=== PATIENT | male | born 1985 | race Caucasian/White ===

== ENCOUNTER 2019-09-23 05:59 | Emergency (ER) | payer BC ==
[~2019-09-23] VITALS: Ht 175.3 cm; Wt 79.5 kg
[2019-09-23 06:04] VITALS: TEMP 97.9
[2019-09-23 07:02] LABS: BASO % 0.6 % (0.0-2.0); EOS # 0.1 (0.0-0.7); EOS % 1.2 % (0-4.0); GRAN # 5.7 (1.4-6.5); HEMOGLOBIN 14.3 g/dl (13.5-18.0); LYMPH # 1.1 (1.2-3.4); LYMPH % 14.6 % (20.0-51.0); MEAN CELL VOLUME 85 fl (80.0-100.0); MEAN CORPUSCULAR HEMOGLOBIN 28 pg (27.0-31.0); MEAN CORPUSCULAR HGB CONC 33 g/dl (33.0-37.0); MEAN PLATELET VOLUME 10.3 fl (7.4-10.4); MONO # 0.4 (0.1-0.6); MONO % 5.2 % (1.7-9.3); PLATELET COUNT 154 K/mm3 (130-400); RED BLOOD COUNT 5.07 M/mm3 (4.20-5.60); REDCELL DISTRIBUTION WIDTH-CV 13.5 % (11.5-14.5)
[2019-09-23 07:04] LABS: ALANINE AMINOTRANSFERASE 15 U/L (4-49); ALBUMIN 4.1 gm/dL (3.5-5.0); ALKALINE PHOSPHATASE 58 U/L (50-136); ANION GAP 4 mmol/L (7-16); AST,SGOT 18 U/L (15-37); BILIRUBIN,TOTAL 0.9 mg/dL (0.0-1.0); BLOOD UREA NITROGEN 18 mg/dL (9-20); CALCIUM 8.2 mg/dL (8.4-10.2); CARBON DIOXIDE 25 mmol/L (22-30); CHLORIDE 108 mmol/L (98-107); CREATININE, serum 1.07 (0.66-1.25); GLUCOSE 111 mg/dL (74-106); POTASSIUM 4.5 mmol/L (3.4-5.0); SODIUM 137 mmol/L (137-145); TOTAL PROTEIN 6.9 gm/dL (6.4-8.2)
[2019-09-23 07:16] LABS: TROPONIN-I < 0.012 ng/mL (0.000-0.035)
[2019-09-23 07:20] LABS: PROLACTIN 28.4 ng/mL (3.7-17.9)
[2019-09-23 07:58] VITALS: BP 114/78; PULSE 73
== END 2019-09-23 07:58 | disposition home or self-care (01) ==
LOC: COL.ER 05:59 → EDBD 06:00 → COL.ER 07:58
PROVIDERS: Emergency Medicine
DX: R55 Syncope and collapse (principal)

== ENCOUNTER → 2019-10-08 | Outpatient (CLI) | payer BC | LOC: COL.VAS 11:58 | DX: R55 Syncope and collapse (principal) ==

== ENCOUNTER 2019-11-15 09:09 | Outpatient (CLI) | payer BC ==
[~2019-11-15] VITALS: Ht 175.4 cm; Wt 79.0 kg
[2019-11-15 09:44] VITALS: BP 131/90; PULSE 73; TEMP 98
[2019-11-15 11:53] VITALS: BP 001/83; PULSE 81
--- NOTE | 2019-11-15 11:54 | NUR ---
Back from [employer] by [facility]. [place].
--- NOTE | 2019-11-15 12:21 | NUR ---
Dr. Joyner in to see pt, ok to discharge. INT discontinued intact. Discharge instructions given. Ambulated to private car
== END 2019-11-15 12:23 | disposition home or self-care (01) ==
LOC: COL.CAR 09:09
DX: R55 Syncope and collapse (principal)

== ENCOUNTER → 2019-12-07 | Outpatient (CLI) | payer BC | LOC: COL.CARD 09:28 | DX: R55 Syncope and collapse (principal) ==

== ENCOUNTER 2021-03-23 15:00 | Outpatient (RCR) | payer BC | END 2021-03-26 | disposition home or self-care (01) | LOC: WSPT | DX: M79.672 Pain in left foot (principal); M25.562 Pain in left knee; M25.572 Pain in left ankle and joints of left foot ==

== ENCOUNTER 2021-04-03 15:00 | Outpatient (RCR) | payer BC | END 2021-04-23 | disposition home or self-care (01) | LOC: WSPT | DX: M79.672 Pain in left foot (principal); M25.562 Pain in left knee; M25.572 Pain in left ankle and joints of left foot ==

== ENCOUNTER → 2023-04-02 | Outpatient (CLI) | payer BC ==
[~2023-04-02] MED LIST: Albuterol 0.083% Neb Soln 2.5 MG/3 ML UD IH ONE
== END ==
LOC: COL.CARD 07:48
DX: R05.9 Cough, unspecified (principal)

== ENCOUNTER → 2023-04-03 | Outpatient (CLI) | payer BC ==
[~2023-04-03] MED LIST changes: +Methacholine Vial A (Clear Label Base-Cntrl) IH ONE; +Methacholine Vial B (Red Label) 0.0625 MG/ML 3 ML VIAL.NEB IH ONE; +Methacholine Vial C (Orange Label) 0.25 MG/ML 3 ML VIAL.NEB IH ONE; +Methacholine Vial D (Yellow Label) 1 MG/ML 3 ML VIAL.NEB IH ONE; +Methacholine Vial E (Green Label) 4 MG/ML 3 ML VIAL.NEB IH ONE; +Methacholine Vial F (Blue Label) 16 MG/ML 3 ML VIAL.NEB IH ONE
== END ==
LOC: COL.CARD 07:49
DX: R05.9 Cough, unspecified (principal)
CPT/HCPCS: J7674